=== PATIENT | male | born 1980 | race Caucasian/White ===

== ENCOUNTER 2023-11-28 07:38 | Emergency (ER) | payer OTHER, SELFPAY ==
[2023-11-28 07:41] VITALS: BP 104/63; BMI 24.5
--- NOTE | 2023-11-28 07:57 | EDRN ---
Vadim BUSH currently at the pts bedside
[2023-11-28 08:00] VITALS: BP 107/62
--- NOTE | 2023-11-28 08:03 | ED.MUSCINJ ---
HPI-Injury
General
Chief Complaint: Fall
Source: patient
Time Seen by Provider: 11/28/23 07:52
History of Present Illness-Injury
Initial Injury comments:
43-year-old male presents complaining of left-sided back pain after a slip and fall. He hit the back left side on the edge of the step. He denies neck pain. No shortness of breath currently. He states he did get the wind knocked out of him at
the time of the injury. No other
Phy Exam
Physical Exam
Physical Exam:
General: Well-appearing male no acute respiratory distress
HEENT: Normocephalic pupils equal round reactive to light no scalp abrasion
Heart: Regular rate and rhythm no murmurs
Lungs: Clear no wheeze
Musculoskeletal exam: The spine is nontender over the midline however he is tender over the left posterior lateral chest wall. There is ecchymosis noted here.
Extremities: No cyanosis
Injury Course
Orders/Labs/Results
Orders:
Orders
11/28/23 08:01
CR Ribs-left 3 Vw W/pa Chest Urgent
Comment:
Reason For Exam: left posterior rib pain after fall
11/28/23 08:12
CT Head W/o Iv Contrast Urgent
Comment:
Reason For Exam: fall, head injury
11/28/23 08:59
Oxycodone/Acetaminophen [Percocet 5/325] 1 tablet PO NOW STA
MDM/Problems Addressed
Differential Diagnosis Includes:
Fall with left posterior lateral rib pain. Consider rib fracture versus chest wall versus pneumothorax. Do not suspect kidney injury given the location of the injury. X-rays of the ribs pending. He is hemodynamically stable
*Critical Care Note
Total Time (30-74mins, 75-104mins- exclusive of procedures): Not Applicable
Update Note
Update Note:
X-rays demonstrates sixth and seventh rib fractures without associated pneumo or hemothorax. Patient treated symptomatically. CT of the head was ordered as did say that he lost consciousness after he fell. This was negative. Reassured them.
Answered all questions. Prescription for prophy was provided for his 2 rib fractures.
ED Attending Note
-
Portions of this chart may have been created with voice recognition software.� Occasional wrong word or��sound alike� substitutions may have occurred due to the inherent limitations of voice recognition software.
Discharge Plan
Departure
Patient Disposition: Home (Routine Discharge)
Date of Disposition: 11/28/23
Time of Disposition: 09:07
Patient with high blood pressure during this ER visit?: No
Discharge Problem:
Fracture, ribs
Instructions: Rib Fracture
Prescriptions:
New
oxycodone-acetaminophen [Percocet] 5-325 mg tablet
1 tab PO Q4H PRN (Reason: Pain) Qty: 12 0RF
No Action
dextroamphetamine-amphetamine [Adderall XR] 15 mg Capsule,Extended Release 24hr
15 mg PO DAILY
Referrals:
NONE,* [Family Provider] -
Activity Restrictions/Additional Instructions:
Rest. Avoid excessive physical or cognitive activity. Avoid heavy lifting or twisting. Use prescribed medicine as needed for severe pain. We take ibuprofen 600 mg every 6 hours also as needed for pain. Return here if worse otherwise follow-up
with your doctor
Interventions
Interventions:
*Risk Screen - Suicide Last Done: 11/28/23 07:41
*General Assessment Last Done: 11/28/23 07:41
*Neglect/Abuse Screening Last Done: 11/28/23 07:41
ED- Fall Risk Assessment Last Done: 11/28/23 07:41
*ED COVID-19 Vaccine History Last Done: 11/28/23 07:41
ED-Musculoskeletal Assessment Last Done: 11/28/23 07:41
ED- Neurological Assessment Last Done: 11/28/23 07:41
ED-Skin Assessment Last Done: 11/28/23 07:41
Discharge Date and Time
Print Language: ROMANIAN
--- NOTE | 2023-11-28 08:05 | EDRN ---
the pts was brought to the pts bedside
--- NOTE | 2023-11-28 08:11 | EDRN ---
the pts approached this RN at the nurses station and stated to this RN, 'I am just curious what if he has a brain injury should he not fall asleep if he as a concussion?', this RN had Vadim BUSH come to the pts bedside and the pts
asked for an MRI of the brain, the provider is speaking to the pt and the pts
--- NOTE | 2023-11-28 08:18 | EDRN ---
volunteer is at the bedside to take the pt to CT scan, this RN unhooked the pt from the monitor and the pt is being taken to CT scan, the pts is staying in the pts room, the pt has no s/s of distress
--- NOTE | 2023-11-28 08:37 | EDRN ---
the pt was brought back from CT scan and xray
--- NOTE | 2023-11-28 08:43 | EDRN ---
the pt was placed back on the monitor, no s/s of distress
[2023-11-28 08:44] VITALS: BP 114/70
--- NOTE | 2023-11-28 08:47 | EDRN ---
Vadim BUSH currently at the pts bedside speaking to the pt and the pts
--- NOTE | 2023-11-28 08:56 | EDRN ---
Vadim BUSH currently still at the pts bedside speaking with the pt and the pts and answering questions that the pt and the pts have prior to discharge
[2023-11-28 09:00] VITALS: BP 107/60
--- NOTE | 2023-11-28 09:02 | EDRN ---
Vadim BUSH currently at the pts bedside again speaking to the pt and the pts
[2023-11-28] MEDS: PERCOCET 5/325 1 TABLET PO (09:05)
[2023-11-28 09:08] VITALS: BP 139/97
--- NOTE | 2023-11-28 09:11 | EDRN ---
this RN entered the pts room and the pt was assisted to a sitting position on the side of the bed by this RN, the pt took percocet pill and spit it out, the pt attempted to take the pill a second time with water and was successful, the pt was
assisted to a standing position by this RN, the pt was able to ambulate to the bathroom with no assistance to urinate, the pt is getting dressed now with the assistance of his , awaiting for discharge papers
--- NOTE | 2023-11-28 09:15 | EDRN ---
the pts wet shirt was placed in a patient belongings bag per the request of the pts , the pt has his wallet and glasses that he came in with via EMS, the pts friend is pulling up the car, this RN provided the pt and the pts with a w/c, the
pt declined a w/c the pt stated that he wants to walk out, the pt and the pts are walking out of the emergency room with discharge instructions that this RN and Vadim BUSH provided to the pt and the pts
== END 2023-11-28 09:18 | disposition home or self-care (01) ==
LOC: EMR 07:38
PROVIDERS: EMERGENCY PHYSICIAN Emergency Medicine
DX: S22.42XA Multiple fractures of ribs, left side, initial encounter for closed fracture (principal); W01.0XXA Fall on same level from slipping, tripping and stumbling without subsequent striking against object, initial encounter
CPT/HCPCS: 99284; 70450; 71101